=== PATIENT | female | born 1985 | race Caucasian/White ===

== ENCOUNTER 2021-04-13 07:51 | Inpatient (IN) ==
--- NOTE | 2021-04-06 11:40 | Anesthesiology Consultation ---
Date of Service April 06, 2021 Assessment & Plan (1) Encounter for pre-operative examination: -COVID screening: Per assessment on 04/06/2021: Travel screen negative, no known COVID-19 positive contacts or current COVID-19 related symptoms. Patient vaccinated. Surgeon arranging preop COVID testing, scheduled 04/18/2021. Awaiting results. - anesthesia record: 10/28/2019 D&E: LMA #4. Atraumatic, 1 attempt, no issues noted per progress note by anesthesiologist. 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 Surgery Operation Date: 04/20/21 07:30 Proposed Procedures p Section (Delivery of Baby Through Abdominal Incision) - Linh Montana MD Height/Weight Height: 5 ft 4 in Weight: 78.471 kg Allergies Allergy/AdvReac Type Severity Reaction Status Date / Time No Known Drug Allergies Allergy Verified 04/06/21 10:12 Medications Home Medications Medication Instructions Recorded Confirmed Last Taken prenat.vits,justice,zku-ejyz-fomvy 1 tab PO QPM 09/06/20 04/06/21 Unknown breast pump #1 ea 03/09/21 04/05/21 Unknown Past Medical History Medical History History of fractured vertebra History of placenta previa Migraines Past Family History Family History Family/Other Aorta disorder Grandfather (Paternal) Heart disease Dyslipidemia Denies family history of Colon cancer Ovarian cancer Prostate cancer Myocardial infarction Breast cancer Past Surgical History Surgical History History of arthroscopy RT KNEE S/P S/P D&C (status post dilation and curettage) [place] teeth removed Social History Smoking Status: Never smoker Do You Dip or Chew Tobacco: No Hx Alcohol Use: No Alcohol type: beer, wine and hard liquor alcohol intake frequency: holidays/special occasions only Hx Substance Use: No substance use type: does not use
[2021-04-13] MEDS ORDERED: OXYTOCIN 30 UNITS/500 ML BAG IV PRN ×3 (07:55→23:11)
[2021-04-13 08:33] LABS: Hematocrit (blood only) 34.5 % (37-47); Hemoglobin 11.5 g/dL (12.0-16.0); Mean Corpuscular Hemoglobin 30.3 pg (25-34); Mean Corpuscular Hgb Conc 33.3 g/dL (32-36); Mean Corpuscular Volume 90.8 fL (80-100); Mean Platelet Volume 11.8 fL (7.4-10.4); Platelet Count 224 K/uL (130-400); RDW Coefficient of Variation 12.8 % (11.5-14.5); RDW Standard Deviation 42.1 fL (36.4-46.3)
[2021-04-13] MEDS ORDERED: SODIUM CHLORIDE 0.9% 250 ML IV PRN (09:33)
--- NOTE | 2021-04-13 09:43 | History & Physical Report ---
Date of Service April 13, 2021 Assessment & Plan (1) Encounter for induction of labor: Plan: Admit pt to L&D for induction of labor. Pt has an unfavorable cervix. Induction started with cervical balloon augmented with pitocin. Pt is gbs neg. Arom as indicated. Epidural on demand. Anticipate . Admission and Anticipated Discharge Date Admission Date: April 13, 2021 History of Present Illness Chief Complaint: Induction of Labor Primary Care Provider: Donna Mccarty MD Kimberly Veliz is a 35 year old female @ 39 2/7 wks gestation presenting to L&D for induction of labor with a plan for . She notes good fm. No contractions other than Rubens-Sanders. No lof/vb. otherwise uncomplicated. Labs: OB Labs: Blood Type A Positive 10/28/19 Antibody Screen NEGATIVE 10/28/19 Hemoglobin 11.9 g/dL (11.7-15.5) 01/26/21 Hematocrit 34.8 % (35.0-45.0) L 01/26/21 Mean Corpuscular Volume 93.9 fL (80.0-100.0) 09/11/20 Platelet Count 273 Thousand/uL (140-400) 09/11/20 Rubella IgG Antibody 2.77 Index 09/11/20 Rapid Plasma Reagin Nonreactive (Nonreactive) 08/30/19 Hepatitis B Surface Antigen Neg (Neg) 08/30/19 HIV (1&2) Ab and P24 Ag, 4th Gener NON-REACTIVE (NON-REACTIVE) 11/06/20 Glucose 1 Hour 50 gm Load 102 mg/dL (<135) 01/26/21 OB Optional Labs: Chlamydia trachomatis RNA NOT DETECTED (NOT DETECTED) 09/11/20 Neisseria gonorrhoeae RNA NOT DETECTED (NOT DETECTED) 09/11/20 Labs Reviewed: CF/SMA negative in prior (09/30/19) gbs neg Allergies Allergy/AdvReac Type Severity Reaction Status Date / Time No Known Drug Allergies Allergy Unknown Verified 04/13/21 09:49 Home Medications Medication Instructions Recorded Confirmed Type prenat.vits,justice,ial-ugwa-mjuhp 1 tab PO QPM 09/06/20 04/13/21 History breast pump #1 ea 03/09/21 04/10/21 Rx Patient History Medical History History of fractured vertebra History of placenta previa Migraines Surgical History History of arthroscopy RT KNEE S/P S/P D&C (status post dilation and curettage) [place] teeth removed Family History Family/Other Aorta disorder Grandfather (Paternal) Heart disease Dyslipidemia Denies family history of Colon cancer Ovarian cancer Prostate cancer Myocardial infarction Breast cancer Social History Smoking Status: Never smoker Second Hand Exposure: No; Do You Dip or Chew Tobacco: No; Hx Alcohol Use: No Hx Substance Use: No Preferred Language: Ukrainian Communication Ability: Effective Visual Impairment: No Limitations Hearing Ability: Normal Actuarial Science Professor Required: No Beliefs That Will Affect Care: None marital status: marital status details: Julio Veliz (40) [phone] Current Living Situation: Spouse and Family Current Living Situation Comment: spouse and children, no pets current occupational status: employed current occupation: division sales manager Feels Safe at Home: Yes Safety Concerns: Feels Safe At This Time Childhood Exposure to Second-Hand Smoke: No Dental Care, Regularly: Yes Physical Activity Frequency: 3-4 Times per Week Seatbelt Use: always Sunscreen Use: Yes Assistive Devices: None Review of Systems All systems reviewed & are unremarkable except as noted in HPI & below Physical Exam Physical Exam: General: Alert, oriented, no acute distress Cardiac: Regular rate and rhythm, normal S1, S2. No murmurs appreciated. Respiratory: Clear to auscultation b/l with good air flow entry, symmetric chest rise and fall. No wheezes or crackles. No increased work of breathing or accessory muscle use Abdomen: Gravid, soft, nontender. No guarding or CVA tenderness Skin: No rashes or lesions Extremities: Warm, dry, well-perfused with capillary refill <2s b/l. No lower extremity edema, erythema or swelling. Negative Mariangel's sign b/l. Genitourinary: normal external appearance OB Exam Abdomen: + posterior and + estimated weight (7-8lbs) Manual OB Exam: + cervical dilation fingertip, + cervical effacement 60% and + station -2 OB Exam Monitor Tracing: + external FHT monitor used and + category I cervical balloon inserted into the cervical canal under direct visualization. balloon was then filled with 40cc water and placed on traction on right thigh. Patient tolerated procedure well. Results & Data ([facility]) Vital Signs (Past 12 Hours) Vital Signs Temp Pulse Resp BP 04/13/21 08:34 36.7 C 18 04/13/21 08:29 79 105/61 Supervising Physician Co-Signing Physician Notes Resident Physician Supervision Note: I interviewed and examined the patient. Discussed with Dr. Asif and agree with findings and plan as documented in the note. Any exceptions or clarifications are listed here: [None] Documented By: Ilana Zamudio MD, FACOG MANAGER REPORT Miscellaneous Codes Misx Procedure Codes 24759 Placement of cervical dilator
[2021-04-13] MEDS: LACTATED RINGER'S 1,000 ML IV PRN ×3 (09:44→21:40)
--- NOTE | 2021-04-13 11:24 | Labor Progress Brief Note ---
Date of Service April 13, 2021 Subjective 40cc clifton placed by Dr. Boss this morning, also on pit. Doing well. Assessment & Plan (1) Encounter for induction of labor: (2) Encounter for trial of labor: Plan: 35 y/o at 39 2/7 wga presenting for TOLAC IOL VSS Fetus cat 1 Labor - 40cc clifton placed, pit going. Reviewed consent form, specifically 1% risk of uterine rupture and potential subsequent catastrophic consequences for mom and baby including severe injury and/or . Pt verbalized understanding, consent re-signed by pt and myself GBS neg Epidural PRN Admission and Anticipated Discharge Date Admission Date: April 13, 2021 Physical Exam Genitourinary: OB Exam Monitor Tracing: + external FHT monitor used, + external uterine monitor used (q5-6) and + category I (150/mod/+accel/-decel) Results & Data ([facility]) Vital Signs (Past 12 Hours) Vital Signs Temp Pulse Resp BP 04/13/21 10:52 83 114/73 04/13/21 08:34 98.1 F 18 04/13/21 08:29 79 105/61 Coding Level of Care Code None Diagnoses Encounter for induction of labor Z34.90 Encounter for trial of labor
--- NOTE | 2021-04-13 15:28 | Labor Progress Brief Note ---
Date of Service April 13, 2021 Subjective somewhat uncomfortable w/ ctx Assessment & Plan (1) Encounter for induction of labor: (2) Encounter for trial of labor: Plan: 35 y/o at 39 2/7 wga presenting for TOLAC IOL VSS Fetus cat 1 Labor - s/p clifton, pit at 8. Continue augmentation, arom when able GBS neg Epidural PRN Admission and Anticipated Discharge Date Admission Date: April 13, 2021 Physical Exam Genitourinary: Manual OB Exam: + cervical dilation 3 cm, + cervical effacement 50% and + station -2 OB Exam Monitor Tracing: + external FHT monitor used, + external uterine monitor used (q3) and + category I (145/mod/+accel/-decel) Results & Data ([facility]) Vital Signs (Past 12 Hours) Vital Signs Temp Pulse Resp BP 04/13/21 15:02 100 H 124/78 04/13/21 14:50 18 04/13/21 13:57 74 111/72 04/13/21 13:50 18 04/13/21 13:30 18 04/13/21 12:50 18 04/13/21 12:20 18 04/13/21 12:02 98.1 F 73 18 113/78 04/13/21 11:50 18 04/13/21 10:52 83 114/73 04/13/21 08:34 98.1 F 18 04/13/21 08:29 79 105/61 Coding Level of Care Code None Diagnoses Encounter for induction of labor Z34.90 Encounter for trial of labor
[2021-04-13] MEDS ORDERED: ePHEDrine sulfate 50 MG/ML AMP ONE (16:53)
[2021-04-13] MEDS ORDERED: fentaNYL citrate 100 MCG/2 ML VIAL ONE (16:54)
[2021-04-13] MEDS ORDERED: BUPIVACAINE 0.25% 30 ML VIAL ONE (16:54)
[2021-04-13] MEDS ORDERED: SODIUM CHLORIDE 0.9% INJ 10 ML VIAL ONE (16:54)
[2021-04-13] MEDS ORDERED: fentaNYL 2MCG/ML ROPIVACAINE 1.25MG/ML 100 ML BAG EPI ONE (16:54)
--- NOTE | 2021-04-13 17:29 | Anesthesiology Consultation ---
Date of Service April 13, 2021 Assessment & Plan Chart Review Chart Review: Patient NOT seen in Pre Admission Testing and Acceptable Risk for Labor Epidural Consults Requested none ASA ASA2 Proposed Anesthesia Anesthesia Type: Labor Epidural and CSE Risk / Benefits Reviewed With: PT / POA / Parent / Guardian, Accepts Plan and Informed Consent Obtained Additional Comments: covid test neg. History Surgery Operation Date: 04/20/21 07:30 Proposed Procedures p Section (Delivery of Baby Through Abdominal Incision) - Linh Montana MD Height/Weight Height: 5 ft 4 in Weight: 79.832 kg Allergies Allergy/AdvReac Type Severity Reaction Status Date / Time No Known Drug Allergies Allergy Unknown Verified 04/13/21 09:49 Medications Home Medications Medication Instructions Recorded Confirmed Last Taken prenat.vits,justice,dfx-cfvt-lgycq 1 tab PO QPM 09/06/20 04/13/21 04/12/21 breast pump #1 ea 03/09/21 04/10/21 Unknown Active Medications Generic Name Dose Route Start Last Admin Trade Name Freq PRN Reason Stop Dose Admin Oxytocin 30 units in 500 mls @ 14 mls/hr 04/13/21 07:55 04/13/21 16:30 Pitocin IV 05/13/21 07:54 0.84 units/hr .Q24H PRN 14 mls/hr Labor Induction/Augmentation Titration Protocol 0.84 UNITS/HR Lactated Ringer's 1,000 mls @ 125 mls/hr 04/13/21 08:01 04/13/21 09:44 Lr IV 04/15/21 08:00 125 mls/hr .Q8H PRN Administration L&D Protocol Protocol NPO Date Last Intake of Fluids: 04/13/21 Time Last Intake of Fluids: 17:00 Date Last Intake of Solids: 04/13/21 Time Last Intake of Solids: 08:30 Past Medical History Medical History History of fractured vertebra History of placenta previa Migraines Exercise / Class Metabolic Activity II 4-5 Yardwork/Stairs/Walk up hill Past Family History Family History Family/Other Aorta disorder Grandfather (Paternal) Heart disease Dyslipidemia Denies family history of Colon cancer Ovarian cancer Prostate cancer Myocardial infarction Breast cancer Past Surgical History Surgical History History of arthroscopy RT KNEE S/P S/P D&C (status post dilation and curettage) [place] teeth removed Past Anesthesia History No Hx of Anesthesia Complications and No Family Hx of Anesthesia Complications History of PONV No Hx of PONV and No Hx of Motion Sickness Social History Smoking Status: Never smoker Do You Dip or Chew Tobacco: No Hx Alcohol Use: No Alcohol type: beer, wine and hard liquor alcohol intake frequency: holidays/special occasions only Hx Substance Use: No substance use type: does not use Physical Exam Vital Signs Last Vital Signs Temp 36.8 C 04/13/21 15:05 Pulse 71 04/13/21 17:22 Resp 16 04/13/21 15:05 BP 124/78 04/13/21 15:02 Pulse Ox 100 04/13/21 17:22 Constitutional + obese ENMT Mouth: no dentition abnormality Thyromental Distance: < 3.5 Finger Breadths Mallampati Class: II Neck normal visual inspection and trachea midline Respiratory normal respiratory effort Auscultation: lungs clear to auscultation bilaterally Cardiovascular Rate/Rhythm: regular rate and regular rhythm Heart Sounds: no murmur Vessels: no carotid bruit Musculoskeletal Spine: lumbar spine normal to inspection; normal cervical ROM Neurologic moves all extremities Motor/Sensory: no sensory deficit Psychiatric Orientation: alert and oriented x 3 Testing Laboratory Results 04/13/21 08:14 Blood Type A Positive 04/13/21 08:14 Antibody Screen NEGATIVE 04/13/21 08:14
[2021-04-13] MEDS ORDERED: fentaNYL 2MCG/ML ROPIVACAINE 1.25MG/ML 100 ML BAG EPI PRN (17:46)
[2021-04-13] MEDS ORDERED: PROMETHAZINE HCL 25 MG in SODIUM CHLORIDE 0.9% 50 ML IV PRN (17:46)
[2021-04-13] MEDS ORDERED: ONDANSETRON INJ 2 MG/ML 2 ML VIAL IV PRN (17:46)
[2021-04-13] MEDS ORDERED: NALOXONE HCL 0.4 MG/1 ML VIAL/CARP IV PRN (17:46)
[2021-04-13] MEDS ORDERED: NALOXONE HCL 1 MG in SODIUM CHLORIDE 0.9% 1000ML 1,000 ML IV PRN (17:46)
[2021-04-13] MEDS ORDERED: NALBUPHINE HCL INJ 10 MG/ML AMP IV PRN (17:46)
[2021-04-13] MEDS ORDERED: diphenhydrAMINE 50 MG/ML VIAL IV PRN (17:46)
[2021-04-13] MEDS ORDERED: ePHEDrine sulfate 50 MG/ML AMP IV PRN (17:46)
--- NOTE | 2021-04-13 19:04 | Labor Progress Brief Note ---
Date of Service April 13, 2021 Subjective Comfortable w/ epidural Assessment & Plan (1) Encounter for induction of labor: (2) Encounter for trial of labor: Plan: 35 y/o at 39 2/7 wga presenting for TOLAC IOL VSS Fetus cat 1 Labor - pit at 16, appears to have just srom so will continue monitoring. Plan to place IUPC if unchanged at next check GBS neg Epidural in place Admission and Anticipated Discharge Date Admission Date: April 13, 2021 Physical Exam Genitourinary: Manual OB Exam: + cervical dilation 4 cm, + cervical effacement 50%, + station -2 and + amniotic fluid (SROM) clear OB Exam Monitor Tracing: + external FHT monitor used, + external uterine monitor used (q5) and + category I (135/mod/+accel/-decel) Results & Data ([facility]) Vital Signs (Past 12 Hours) Vital Signs Temp Pulse Resp BP Pulse Ox 04/13/21 18:57 64 100 04/13/21 18:53 67 116/72 04/13/21 18:52 63 98 04/13/21 18:47 58 L 99 04/13/21 18:42 57 L 98 04/13/21 18:39 55 L 118/68 04/13/21 18:37 54 L 98 04/13/21 18:32 58 L 99 04/13/21 18:27 69 99 04/13/21 18:22 59 L 114/69 98 04/13/21 18:17 74 98 04/13/21 18:15 64 115/67 04/13/21 18:12 75 98 04/13/21 18:11 62 119/65 04/13/21 18:07 79 98 04/13/21 18:05 67 117/71 04/13/21 18:02 76 112/70 98 04/13/21 17:57 74 98 04/13/21 17:54 74 115/69 04/13/21 17:52 82 115/60 98 04/13/21 17:50 85 116/56 L 04/13/21 17:48 78 112/56 L 04/13/21 17:47 79 98 04/13/21 17:46 67 120/65 04/13/21 17:44 73 118/66 04/13/21 17:42 74 115/63 99 04/13/21 17:40 76 127/78 04/13/21 17:38 75 132/80 04/13/21 17:37 83 100 04/13/21 17:36 80 132/79 04/13/21 17:34 81 129/79 04/13/21 17:32 79 100 04/13/21 17:29 75 125/75 04/13/21 17:27 69 100 04/13/21 17:22 71 100 04/13/21 17:17 73 100 04/13/21 17:12 78 100 04/13/21 15:05 98.2 F 16 04/13/21 15:02 100 H 124/78 04/13/21 14:50 18 04/13/21 13:57 74 111/72 04/13/21 13:50 18 04/13/21 13:30 18 04/13/21 12:50 18 04/13/21 12:20 18 04/13/21 12:02 98.1 F 73 18 113/78 04/13/21 11:50 18 04/13/21 10:52 83 114/73 04/13/21 08:34 98.1 F 18 04/13/21 08:29 79 105/61 Coding Level of Care Code None Diagnoses Encounter for induction of labor Z34.90 Encounter for trial of labor
--- NOTE | 2021-04-13 20:57 | Labor Progress Brief Note ---
Date of Service April 13, 2021 Subjective Comfortable w/ epidural Assessment & Plan (1) Encounter for induction of labor: (2) Encounter for trial of labor: Plan: 35 y/o at 39 2/7 wga presenting for TOLAC IOL VSS Fetus cat 1 Labor - pit at 20, IUPC placed to guide pit. Some progression from last SVE though GBS neg Epidural in place Admission and Anticipated Discharge Date Admission Date: April 13, 2021 Physical Exam Genitourinary: Manual OB Exam: + cervical dilation 4 cm, + cervical effacement 50% and + station -1 OB Exam Monitor Tracing: + intra-uterine pressure catheter used (IUPC placed q3-4) and + category I (120/mod/+accel/-decel) Results & Data ([facility]) Vital Signs (Past 12 Hours) Vital Signs Temp Pulse Resp BP Pulse Ox 04/13/21 20:52 61 97 04/13/21 20:50 76 91 04/13/21 20:47 61 100 04/13/21 20:42 61 99 04/13/21 20:38 60 116/58 L 04/13/21 20:37 59 L 100 04/13/21 20:32 60 99 04/13/21 20:27 61 99 04/13/21 20:23 60 116/58 L 04/13/21 20:22 60 99 04/13/21 20:17 60 98 04/13/21 20:12 60 98 04/13/21 20:08 59 L 119/58 L 04/13/21 20:07 59 L 99 04/13/21 20:02 60 99 04/13/21 19:57 59 L 99 04/13/21 19:54 59 L 117/69 04/13/21 19:53 62 93 04/13/21 19:52 60 99 04/13/21 19:47 65 99 04/13/21 19:42 59 L 99 04/13/21 19:39 60 148/60 H 04/13/21 19:37 61 99 04/13/21 19:32 63 98 04/13/21 19:27 58 L 100 04/13/21 19:23 56 L 125/69 04/13/21 19:22 62 100 04/13/21 19:17 58 L 99 04/13/21 19:12 62 100 04/13/21 19:08 58 L 115/75 04/13/21 19:07 59 L 100 04/13/21 19:02 64 99 04/13/21 19:00 97.5 F L 16 04/13/21 18:57 64 100 04/13/21 18:53 67 116/72 04/13/21 18:52 63 98 04/13/21 18:47 58 L 99 04/13/21 18:42 57 L 98 04/13/21 18:39 55 L 118/68 04/13/21 18:37 54 L 98 04/13/21 18:32 58 L 99 04/13/21 18:27 69 99 04/13/21 18:22 59 L 114/69 98 04/13/21 18:17 74 98 04/13/21 18:15 64 115/67 04/13/21 18:12 75 98 04/13/21 18:11 62 119/65 04/13/21 18:07 79 98 04/13/21 18:05 67 117/71 04/13/21 18:02 76 112/70 98 04/13/21 17:57 74 98 04/13/21 17:54 74 115/69 04/13/21 17:52 82 115/60 98 04/13/21 17:50 85 116/56 L 04/13/21 17:48 78 112/56 L 04/13/21 17:47 79 98 04/13/21 17:46 67 120/65 04/13/21 17:44 73 118/66 04/13/21 17:42 74 115/63 99 04/13/21 17:40 76 127/78 04/13/21 17:38 75 132/80 04/13/21 17:37 83 100 04/13/21 17:36 80 132/79 04/13/21 17:34 81 129/79 04/13/21 17:32 79 100 04/13/21 17:29 75 125/75 04/13/21 17:27 69 100 04/13/21 17:22 71 100 04/13/21 17:17 73 100 04/13/21 17:12 78 100 04/13/21 15:05 98.2 F 16 04/13/21 15:02 100 H 124/78 04/13/21 14:50 18 04/13/21 13:57 74 111/72 04/13/21 13:50 18 04/13/21 13:30 18 04/13/21 12:50 18 04/13/21 12:20 18 04/13/21 12:02 98.1 F 73 18 113/78 04/13/21 11:50 18 04/13/21 10:52 83 114/73 Coding Level of Care Code None Diagnoses Encounter for induction of labor Z34.90 Encounter for trial of labor
--- NOTE | 2021-04-13 22:16 | Labor Progress Brief Note ---
Date of Service April 13, 2021 Subjective called by nursing for exam, pit turned off due to a decel and difficulty tracing, now recovered Assessment & Plan (1) Encounter for induction of labor: (2) Encounter for trial of labor: Plan: 35 y/o at 39 2/7 wga presenting for TOLAC IOL VSS Fetus cat 1 Labor - progressed well despite mvus inadequate, short break of pit given and will restart with maternal repositioning GBS neg Epidural in place Admission and Anticipated Discharge Date Admission Date: April 13, 2021 Physical Exam Genitourinary: Manual OB Exam: + cervical dilation 8 cm, + cervical effacement 80% and + station -1 OB Exam Monitor Tracing: + intra-uterine pressure catheter used (IUPC placed q3-4) and + category I (120/mod/+accel/-decel) Results & Data ([facility]) Vital Signs (Past 12 Hours) Vital Signs Temp Pulse Resp BP Pulse Ox 04/13/21 22:12 63 98 04/13/21 22:08 62 118/58 L 04/13/21 22:07 63 100 04/13/21 22:02 66 100 04/13/21 21:57 63 119/53 L 100 04/13/21 21:54 72 92 04/13/21 21:52 63 100 04/13/21 21:47 62 100 04/13/21 21:42 62 100 04/13/21 21:39 60 118/59 L 04/13/21 21:37 64 100 04/13/21 21:32 62 98 04/13/21 21:27 62 99 04/13/21 21:26 78 91 04/13/21 21:24 59 L 117/71 04/13/21 21:22 60 98 04/13/21 21:17 59 L 99 04/13/21 21:12 61 99 04/13/21 21:08 60 118/69 04/13/21 21:07 59 L 99 04/13/21 21:02 59 L 100 04/13/21 20:58 56 L 118/84 04/13/21 20:57 57 L 100 04/13/21 20:56 77 94 04/13/21 20:52 61 97 04/13/21 20:50 76 91 04/13/21 20:47 61 100 04/13/21 20:42 61 99 04/13/21 20:38 60 116/58 L 04/13/21 20:37 59 L 100 04/13/21 20:32 60 99 04/13/21 20:27 61 99 04/13/21 20:23 60 116/58 L 04/13/21 20:22 60 99 04/13/21 20:17 60 98 04/13/21 20:12 60 98 04/13/21 20:08 59 L 119/58 L 04/13/21 20:07 59 L 99 04/13/21 20:02 60 99 04/13/21 19:57 59 L 99 04/13/21 19:54 59 L 117/69 04/13/21 19:53 62 93 04/13/21 19:52 60 99 04/13/21 19:47 65 99 04/13/21 19:42 59 L 99 04/13/21 19:39 60 148/60 H 04/13/21 19:37 61 99 04/13/21 19:32 63 98 04/13/21 19:27 58 L 100 04/13/21 19:23 56 L 125/69 04/13/21 19:22 62 100 04/13/21 19:17 58 L 99 04/13/21 19:12 62 100 04/13/21 19:08 58 L 115/75 04/13/21 19:07 59 L 100 04/13/21 19:02 64 99 04/13/21 19:00 97.5 F L 16 04/13/21 18:57 64 100 04/13/21 18:53 67 116/72 04/13/21 18:52 63 98 04/13/21 18:47 58 L 99 04/13/21 18:42 57 L 98 04/13/21 18:39 55 L 118/68 04/13/21 18:37 54 L 98 04/13/21 18:32 58 L 99 04/13/21 18:27 69 99 04/13/21 18:22 59 L 114/69 98 04/13/21 18:17 74 98 04/13/21 18:15 64 115/67 04/13/21 18:12 75 98 04/13/21 18:11 62 119/65 04/13/21 18:07 79 98 04/13/21 18:05 67 117/71 04/13/21 18:02 76 112/70 98 04/13/21 17:57 74 98 04/13/21 17:54 74 115/69 04/13/21 17:52 82 115/60 98 04/13/21 17:50 85 116/56 L 04/13/21 17:48 78 112/56 L 04/13/21 17:47 79 98 04/13/21 17:46 67 120/65 04/13/21 17:44 73 118/66 04/13/21 17:42 74 115/63 99 04/13/21 17:40 76 127/78 04/13/21 17:38 75 132/80 04/13/21 17:37 83 100 04/13/21 17:36 80 132/79 04/13/21 17:34 81 129/79 04/13/21 17:32 79 100 04/13/21 17:29 75 125/75 04/13/21 17:27 69 100 04/13/21 17:22 71 100 04/13/21 17:17 73 100 04/13/21 17:12 78 100 04/13/21 15:05 98.2 F 16 04/13/21 15:02 100 H 124/78 04/13/21 14:50 18 04/13/21 13:57 74 111/72 04/13/21 13:50 18 04/13/21 13:30 18 04/13/21 12:50 18 04/13/21 12:20 18 04/13/21 12:02 98.1 F 73 18 113/78 04/13/21 11:50 18 04/13/21 10:52 83 114/73 Coding Level of Care Code None Diagnoses Encounter for induction of labor Z34.90 Encounter for trial of labor
--- NOTE | 2021-04-13 23:08 | Delivery Summary ---
Vaginal Delivery Summary Date of Service April 13, 2021 Vaginal Delivery Summary PREOPERATIVE DIAGNOSIS: 1. Single intrauterine at 39 2/7 wga 2. Trial of labor after section 3. Elective IOL POSTOPERATIVE DIAGNOSIS: 1. Single intrauterine at 39 2/7 wga 2. Trial of labor after section 3. Elective IOL 4. Delivered PROCEDURE: 1. Vaginal after . SURGEON: Carolin Henao MD ANESTHESIA: Epidural. ESTIMATED BLOOD LOSS: 200 mL FLUIDS: Continuous LR. URINE OUTPUT: None. COMPLICATIONS: None. CONDITION: Stable. INDICATIONS: 35 y/o at 39 2/7 wga presented today for planned elective induction trial of labor. Clifton bulb was placed and pitocin started. Following clifton bulb expulsion, pitocin was titrated up. She received an epidural for pain control. She underwent spontaneous rupture of membranes. Pitocin continued to be titrated with IUPC in place. decel was noted and so pitocin was discontinued and FSE placed, however shortly after restarting pitocin she was then found to be complete and desired to push. FINDINGS: A viable female , weight pending with Apgars of 8 and 9 at 1 and 5 minutes respectively. SPECIMEN: Cord blood. OPERATIVE REPORT: The patient progressed to 10 cm, 100% effaced and +2 station, pushed over intact perineum with anesthesia to deliver a viable male , weight and Apgars as above. Head of delivered in KESHA position. Tight nuchal cord was noted but delivered through as body and shoulders rapidly delivered after the head. was delivered to maternal abdomen and nursing staff. Delayed cord clamping was performed for 60 seconds. Cord was clamped and cut. Cord blood was obtained. Placenta delivered spontaneously intact with 3- vessel cord. IV oxytocin and fundal massage were given for excellent hemostasis. Vagina, cervix, perineum, and placenta were inspected. No lacerations were noted. Sponge and needle counts correct x2. No sponges were left behind. Mother and stable in immediate period. [facility] [place] Vaginal Delivery Codes: 04572 global code for the antepartum, delivery, and post- Delivery Type Details:
[2021-04-13] MEDS ORDERED: bisacodyL 10 MG SUPP PR PRN (23:11)
[2021-04-13] MEDS ORDERED: BENZOCAINE 20% AER SPR 82.5 GM CAN EXT PRN (23:11)
[2021-04-13] MEDS ORDERED: DIPHTHERIA/TETANUS/PERTUSSIS 0.5 ML SYR/VIAL IM ONE (23:11)
[2021-04-13] MEDS ORDERED: ACETAMINOPHEN 325 MG TAB PO PRN (23:11)
[2021-04-13] MEDS ORDERED: SUPERCREAM 0.870% 15 GM JAR EXT PRN (23:11)
[2021-04-13] MEDS ORDERED: HYDROCORTISONE ACETATE 25 MG SUPP PR PRN (23:11)
[2021-04-14] MEDS: IBUPROFEN 600 MG TAB PO PRN ×5 (00:45→20:29)
--- NOTE | 2021-04-14 01:05 | Anesthesia Procedure Note ---
Date of Service April 14, 2021 Anesthesia Post Epidural Note Vital Signs Vital Signs: Temp Pulse Resp BP Pulse Ox 36.8 C 101 H 16 96/59 L 91 04/13/21 23:05 04/14/21 01:04 04/14/21 00:35 04/14/21 01:04 04/13/21 22:54 Pain Intensity Bilateral Abdomen: Pain Intensity: 4 Notes Mental Status: alert / awake / arousable Nausea / Vomiting: adequately controlled Pain: adequately controlled Airway Patency, RR, SpO2: stable & adequate BP & HR: stable & adequate Hydration State: stable & adequate Neuraxial Anesthesia: was administered and sensory block is resolving Anesthetic Complications: no major complications apparent Epidural: Removed without complications and With tip intact
[2021-04-14 06:51] LABS: Hematocrit (blood only) 30.6 % (37-47); Hemoglobin 10.1 g/dL (12.0-16.0); Mean Corpuscular Hemoglobin 30.1 pg (25-34); Mean Corpuscular Volume 91.3 fL (80-100); Mean Platelet Volume 11.5 fL (7.4-10.4); Platelet Count 160 K/uL (130-400); RDW Coefficient of Variation 12.8 % (11.5-14.5); RDW Standard Deviation 42.8 fL (36.4-46.3); Red Blood Count 3.35 M/uL (4.2-5.4); White Blood Count 13.33 K/uL (4.8-10.8)
--- NOTE | 2021-04-14 07:15 | Obstetrical Progress Note ---
Date of Service <Jose Cruz AsifDO - Last Filed: 04/14/21 07:16> April 14, 2021 Assessment & Plan <Jose Cruz AsifDO - Last Filed: 04/14/21 07:16> (1) Encounter for care and examination after delivery: 35 yo PPD 1 s/p () at 39 weeks. -Continue routine care; Keep pt additional 24 hrs. -Vitals reviewed- HDS, afebrile -A+, GBS-, Rubella immune -Encourage ambulation, regular diet -Pain control with ibuprofen, acetaminophen PRN -Encouraged <Carolin Henao MD - Last Filed: 04/14/21 08:09> (1) Encounter for care and examination after delivery: Subjective <Jose Cruz AsifDO - Last Filed: 04/14/21 07:16> Ambulation: ambulating normally Voiding: no voiding problems Passing Gas:: No Diet Tolerance:: regular diet Lochia:: Small Feeding Type:: breast feeding Current Pain Level(1-10): 3 PPD 1 s/p (). Patient seen and examined at bedside. Reports no acute overnight events Review of Systems All systems reviewed & are unremarkable except as noted in HPI & below Physical Exam <Jose Cruz Asif - Last Filed: 04/14/21 07:16> General: Alert, oriented, no acute distress Cardiac: Regular rate and rhythm, normal S1, S2. No murmurs appreciated. Respiratory: Clear to auscultation b/l with good air flow entry, symmetric chest rise and fall. No wheezes or crackles. No increased work of breathing or accessory muscle use Abdomen: Soft, nontender, nondistended. Fundus firm and palpable at level of umbilicus. No guarding or rebound. Skin: No rashes or lesions Extremities: Warm, dry, well-perfused with capillary refill <2s b/l. No lower extremity edema, erythema or swelling. Negative Mariangel's sign b/l. Results & Data ([facility]) <Jose Cruz AsifDO - Last Filed: 04/14/21 07:16> Vital Signs (Past 12 Hours) Vital Signs Temp Pulse Pulse Resp BP BP Pulse Ox 04/14/21 04:30 36.9 C 64 16 99/56 L 97 10/02/21 01:35 36.7 C 66 17 103/62 96 04/14/21 01:15 18 04/14/21 01:04 101 H 96/59 L 04/14/21 00:49 65 96/54 L 04/14/21 00:35 16 04/14/21 00:34 66 102/59 L 04/14/21 00:19 67 107/59 L 04/14/21 00:05 18 04/14/21 00:04 69 130/66 04/13/21 23:50 18 04/13/21 23:49 65 120/65 04/13/21 23:35 18 04/13/21 23:34 61 117/58 L 04/13/21 23:20 18 04/13/21 23:08 75 105/55 L 04/13/21 23:05 36.8 C 18 04/13/21 23:04 200 H 148/101 H 04/13/21 22:54 99 H 91 04/13/21 22:52 81 100 04/13/21 22:47 84 99 04/13/21 22:42 76 98 04/13/21 22:38 72 94 04/13/21 22:37 68 99 04/13/21 22:32 74 100 04/13/21 22:27 75 100 04/13/21 22:24 83 131/63 04/13/21 22:23 73 93 04/13/21 22:22 73 100 04/13/21 22:17 71 100 04/13/21 22:14 71 89 L 04/13/21 22:12 63 98 04/13/21 22:08 62 118/58 L 04/13/21 22:07 63 100 04/13/21 22:02 66 100 04/13/21 21:57 63 119/53 L 100 04/13/21 21:54 72 92 04/13/21 21:52 63 100 04/13/21 21:47 62 100 04/13/21 21:42 62 100 04/13/21 21:39 60 118/59 L 04/13/21 21:37 64 100 04/13/21 21:32 62 98 04/13/21 21:27 62 99 04/13/21 21:26 78 91 04/13/21 21:24 59 L 117/71 04/13/21 21:22 60 98 04/13/21 21:17 59 L 99 04/13/21 21:12 61 99 04/13/21 21:08 60 118/69 04/13/21 21:07 59 L 99 04/13/21 21:02 59 L 100 04/13/21 20:58 56 L 118/84 04/13/21 20:57 57 L 100 04/13/21 20:56 77 94 04/13/21 20:52 61 97 04/13/21 20:50 76 91 04/13/21 20:47 61 100 04/13/21 20:42 61 99 04/13/21 20:38 60 116/58 L 04/13/21 20:37 59 L 100 04/13/21 20:32 60 99 04/13/21 20:27 61 99 04/13/21 20:23 60 116/58 L 04/13/21 20:22 60 99 04/13/21 20:17 60 98 04/13/21 20:12 60 98 04/13/21 20:08 59 L 119/58 L 04/13/21 20:07 59 L 99 04/13/21 20:02 60 99 04/13/21 19:57 59 L 99 04/13/21 19:54 59 L 117/69 04/13/21 19:53 62 93 04/13/21 19:52 60 99 04/13/21 19:47 65 99 04/13/21 19:42 59 L 99 04/13/21 19:39 60 148/60 H 04/13/21 19:37 61 99 04/13/21 19:32 63 98 04/13/21 19:27 58 L 100 04/13/21 19:23 56 L 125/69 04/13/21 19:22 62 100 04/13/21 19:17 58 L 99 <Carolin Henao MD - Last Filed: 04/14/21 08:09> Co-Signing Physician Notes Resident Physician Supervision Note: I interviewed and examined the patient. Discussed with Dr. Asif and agree with findings and plan as documented in the note. Any exceptions or clarifications are listed here: PP1 s/p , meeting pp milestones. Plan for d/c tomorrow Documented By: Carolin Henao MD
[2021-04-14] MEDS: FERROUS SULFATE 325 MG TAB PO SCH (09:08)
[2021-04-14] MEDS: PRENATAL VITAMIN 1 TAB PO SCH (09:08)
[2021-04-14] MEDS: DOCUSATE SODIUM 100 MG CAP PO SCH ×2 (09:09→20:29)
[2021-04-14] MEDS ORDERED: bisacodyL 5 MG TABEC PO SCH (20:00)
--- NOTE | 2021-04-15 08:25 | Obstetrical Progress Note ---
Date of Service April 15, 2021 Assessment & Plan (1) Encounter for care and examination after delivery: satisfactory course successful discharge to home follow up in 6 weeks Subjective Ambulation: ambulating normally Voiding: no voiding problems Passing Gas:: Yes Diet Tolerance:: regular diet Lochia:: Small Feeding Type:: breast feeding Review of Systems All systems reviewed & are unremarkable except as noted in HPI & below Physical Exam Constitutional WD/WN, vitals as above Psychiatric A+Ox3, euthymic affect Genitourinary OB Exam Abdomen: + fundal height Fundus: + firm and + relation to umbilicus (1 below) Results & Data ([facility]) Vital Signs (Past 12 Hours) Vital Signs Temp Pulse Resp BP Pulse Ox 04/15/21 00:30 97.5 F L 59 L 16 108/68 98
[2021-04-15] MEDS: PRENATAL VITAMIN 1 TAB PO SCH (09:29)
[2021-04-15] MEDS: FERROUS SULFATE 325 MG TAB PO SCH (09:29)
[2021-04-15] MEDS: IBUPROFEN 600 MG TAB PO PRN (09:30)
[2021-04-15] MEDS: DOCUSATE SODIUM 100 MG CAP PO SCH (09:30)
== END 2021-04-15 11:05 | disposition home or self-care (01) | DRG 807 ==
LOC: 4S1 07:51 → 4S2 04-14 01:30 → EDSTATUS 04-20 07:30
DX: O69.1XX0 Labor and delivery complicated by cord around neck, with compression, not applicable or unspecified; O36.8330 Maternal care for abnormalities of the fetal heart rate or rhythm, third trimester, not applicable or unspecified; O34.219 Maternal care for unspecified type scar from previous cesarean delivery; Z37.0 Single live birth; Z79.899 Other long term (current) drug therapy; Z3A.39 39 weeks gestation of pregnancy